=== PATIENT | female | born 1950 | race Caucasian/White ===

== ENCOUNTER 2016-07-23 17:29 | Emergency (ER) | payer OTHER ==
[~2016-07-23] VITALS: Ht 160 cm; Wt 118.2 kg
[2016-07-23 17:33] VITALS: BP 116/71; PULSE 79; RESP 16; O2SAT 97
--- NOTE | 2016-07-23 18:07 | ED.REPORT ---
HPI- Female Date of Service Jul 23, 2016 ED Provider: David Grey PA-C Marycarmen is a 66 female with a history of diabetes, hypertension, recent hip arthroplasty. With a chief complaint of blood in her urine. Patient reports she noted burning and this morning, followed shortly by blood associated with chills and a sensation of pressure in the suprapubic region. Admits to chronic back pain that is at baseline. Denies nausea/vomiting, vaginal bleeding/ discharge. Patient believes she has a urinary tract infection. Nursing Notes Stated Complaint: BLOOD IN URINE POST SURGERY Chief Complaint: Female Abdominal Pain Nursing Notes Reviewed: Yes Allergies: Coded Allergies: codeine (Verified Adverse Reaction, Severe, vomiting, 07/23/16) General Time Seen by MD: 17:41 Chief Complaint Dysuria Sudden in Onset?: No Past Medical History Past Medical History Hypertension Diabetes Past Surgical History Cholecystectomy Family History Noncontributory Smoking History Never Smoker Social History Alcohol Use: Denies alcohol use Drug Use: Denies drug use Other Social History: Good social support, , Local resident Ambulatory Status Independent Review of Systems Review of Systems Note: Negative unless stated otherwise in history of present illness Physical Exam General: Well appearing, well developed, obese, no acute distress. Head: Atraumatic, normocephalic. Eyes: No scleral icterus or injection. No discharge. Vision grossly intact. ENT: Voice clear, hearing grossly intact. Respiratory: Regular rate and rhythm. Breath sounds present, clear to auscultation and equal bilaterally. No respiratory distress. No increased work of breathing, speaks in complete sentences. Cardiovascular: Regular rate and rhythm, without murmur, gallop or rub. No pedal edema. Gastrointestinal: Obese abdomen with mild suprapubic and right upper quadrant tenderness without guarding or rebound. Bowel sounds normoactive. Skin: Warm and dry. Back: Mild bilateral CVA tenderness. Neurological: Grossly nonfocal. Psychological: Alert and oriented. Speech appropriate, linear and logical. Behavior appropriate. Initial Vital Signs Vital Signs (First) Date Time Temp Pulse Resp B/P Pulse Ox O2 Delivery O2 Flow Rate FiO2 07/23/16 17:33 36.4 79 16 116/71 97 Room Air Interpretation & Diagnostics Lab Results Interpretation Test 07/23/16 17:46 Urine Color Yellow (YELLOW) Urine Appearance Cloudy (CLEAR,HAZY) Urine pH 6.0 (5.0-8.0) Urine Specific [place] 1.015 (1.003-1.035) Urine Protein 30mg/dL (NEG,TRACE) Urine Glucose (UA) Negativemg/dL (NEGATIVE) Urine Ketones Negativemg/dL (NEGATIVE) Urine Occult Blood Large (NEGATIVE) Urine Nitrite Negative (NEGATIVE) Urine Bilirubin Negative (NEGATIVE) Urine Urobilinogen Normalmg/dL (NORMAL) Urine Leukocyte Esterase Moderate (NEGATIVE) Urine RBC >50/hpf (0-2) Urine WBC 11-50/hpf (0-5) Urine Epithelial Cells Few/hpf (NONE-MOD) Urine Crystals None seen (NONE SEEN) Urine Bacteria Few/hpf (NONE-FEW) Urine Hyaline Casts None/lpf (NONE) Urine Granular Casts None seen (NONE SEEN) Urine Waxy Casts None seen (NONE SEEN) Urine Red Blood Cell Casts None seen (NONE SEEN) Urine White Blood Cell Casts None seen (NONE SEEN) Urine Mucus None seen (None Seen) Urine Trichomonas None seen (NONE SEEN) Urine Yeast None (NONE SEEN) Urinalysis Comment None Urine Culture Reflexed Indicated Hold Urine Received (Received) Re-Eval/Medical Decision Med Decision/Clinical Course 66 female with a history of diabetes, hypertension and recent hip arthroplasty presents with chief complaint of blood in her urine, dysuria since this morning. She believes she has a urinary tract infection. Admits to chronic back pain that is at baseline. Denies nausea/vomiting. Physical examination reveals mild bilateral CVA tenderness as well as mild suprapubic and right upper quadrant tenderness. Urinalysis is significant for 30 mg/dL protein and large occult blood, moderate leukocyte esterase, greater than 50 RBC, 11-50 WBC , few epithelial cells, few bacteria. I think this is most likely a cystitis though they mild CVA tenderness is concerning for possible progression of pyelonephritis. The patient appears quite well, with no complaints of severe pain, nausea or vomiting. Vital signs are normal and she is afebrile. I believe this can safely be treated on an outpatient basis. I discussed the case with Dr. Morocho, who recommended cephalexin 500 mg 4 times a day 7 days to treat uncomplicated cystitis but cover for potential mild pyelonephritis. Advised regarding primary care follow-up, provided emergency return precautions. Patient verbalized understanding of, and consent to, the plan. Discharge & Departure Impression: Primary Impression: Urinary tract infection Urinary tract infection type: acute cystitis Hematuria presence: with hematuria Qualified Code: N30.01 - Acute cystitis with hematuria Disposition: Home Discharge Condition All VS Reviewed: Yes Condition: Stable Patient Instructions: Urinary Tract Infection in Women (DC) Additional Instructions: Evaluation for blood in her urine emergency department consists of history, physical examination and urinalysis all of which suggest that you have a urinary tract infection. Because there is very mild tenderness over the kidneys , I believe it is safest to treat this as though it is a kidney infection. I believe you are stable and safe to go home. I will write you a prescription for Keflex 500 mg be taken 4 times a day for 7 days. Please follow up with her primary care provider in about one week to be sure this is resolving as expected. Return to emergency department for any new or worsening symptoms including increasing pain, fever, vomiting. Referrals: Isabell Linares PA-C (PCP) EDSupervising Provider for APC: Sreedhar Morocho MD copies to: Isabell Linares PA-C, Seth PA-C Jul 23, 2016 18:07
[2016-07-23 18:15] LABS: APPEARANCE,URINE CLOUDY (CLEAR,HAZY); COLOR,URINE YELLOW (YELLOW); OCCULT BLOOD,URINE LARGE (NEGATIVE); UROBILINOGEN,URINE NORMAL (NORMAL)
[2016-07-23] MEDS ORDERED: CEPH500T PO (18:39)
[2016-07-23 18:55] VITALS: BP 116/71; PULSE 79; RESP 16; O2SAT 97
[2016-07-23] MEDS ORDERED: _Cephalexin 500 mg Capsule PO SCH (20:30)
== END 2016-07-23 19:05 | disposition home or self-care (01) ==
LOC: SED 17:29
DX: N30.01 Acute cystitis with hematuria (principal); B96.20 Unspecified Escherichia coli [E. coli] as the cause of diseases classified elsewhere; E11.9 Type 2 diabetes mellitus without complications; I10 Essential (primary) hypertension; M54.9 Dorsalgia, unspecified; G89.29 Other chronic pain; Z96.649 Presence of unspecified artificial hip joint; Z90.49 Acquired absence of other specified parts of digestive tract; Z88.5 Allergy status to narcotic agent